=== PATIENT | female | born 1990 | race Caucasian/White ===

== ENCOUNTER 2019-07-14 19:42 | Emergency (ER) | payer OTHER ==
[~2019-07-14] VITALS: Ht 175.3 cm; Wt 108.9 kg
[2019-07-14 19:59] VITALS: BP 157/91
--- NOTE | 2019-07-14 20:09 | NUR ---
AMBULATES TO WITH SLOW, STEADY GAIT TO COLLECT URINE SAMPLE. ACCOMPANIED BY . WILL GO TO BED 09 WHEN FINISHED.
--- NOTE | 2019-07-14 20:32 | NUR ---
29 Y/O FEMALE PRESENTS TO ED, C/O VAGINAL BLEEDING. PT STATES GOING TO [facility] ON WEDNESDAY AND HAVING POSITIVE RESULTS. PT STATES HAVING SPOTTED BLEEDING BUT WORSENED TODAY. HCG IS NEGATIVE. PT DENIES ANY ABDOMINAL PAIN. NO N/V/D. PT VSS. ERMD AWARE. WILL CONTINUE TO MONITOR.
--- NOTE | 2019-07-14 20:41 | NUR ---
LAB AT BEDSIDE DRAWING BLOOD
--- NOTE | 2019-07-14 20:57 | NUR ---
ULTRASOUND AT BEDSIDE
[2019-07-14 21:02] LABS: BASOPHILS % (AUTO) 0.6 % (0.0-2.0); EOSINOPHILS # (AUTO) 0.2 K/uL (0-0.4); EOSINOPHILS % (AUTO) 2.8 % (0.0-4.0); HEMATOCRIT 36.2 % (36-48); HEMOGLOBIN 11.7 g/dL (12.0-16.0); LYMPHOCYTES # (AUTO) 2.1 K/uL (2.5-16.5); LYMPHOCYTES % (AUTO) 28.7 % (20.5-51.1); MEAN CORPUSCULAR HEMOGLOBIN 25 pg (27-31); MEAN CORPUSCULAR HGB CONC 32 g/dL (33-37); MEAN CORPUSCULAR VOLUME 78.6 fL (80-94); MONOCYTES # (AUTO) 0.6 K/uL (0.8-1.0); MONOCYTES % (AUTO) 8.5 % (1.7-9.3); NEUTROPHILS # (AUTO) 4.3 K/uL (1.8-7.7); NEUTROPHILS % (AUTO) 59.4 % (42.2-75.2); PLATELET COUNT (AUTO) 152 K/uL (140-450); RED BLOOD CELL COUNT(AUTO) 4.61 MIL/uL (4.20-5.40); RED CELL DISTRIBUTION WIDTH 13.8 % (11.6-13.7); WHITE BLOOD COUNT (AUTO) 7.2 K/uL (4.8-10.8)
[2019-07-14 21:19] LABS: BILIRUBIN,URINE 1+ (NEGATIVE); BLOOD, URINE 3+ (NEGATIVE); LEUKOCYTE ESTERASE ,URINE TRACE (NEGATIVE); NITRITE, URINE NEGATIVE (NEGATIVE); UGLUCOSE NEGATIVE (NEGATIVE)
[2019-07-14 21:31] LABS: APPEARANCE,URINE BLOODY (CLEAR); COLOR,URINE RED (YELLOW)
[2019-07-14 21:39] LABS: RBC,URINE TOO NUMEROUS TO COUN /HPF (0-5); WBC,URINE 0-5 /HPF (0-5)
[2019-07-14 23:05] VITALS: BP 157/91
--- NOTE | 2019-07-14 23:05 | NUR ---
PT DISCHARGED WITH PAPERWORK. EDUCATED PT REGARDING MEDICATIONS AND D/C INSTRUCTIONS. PT VERBALIZED UNDERSTANDING OF TEACHING. TOLD PT TO FOLLOW UP WITH PCP AND WHEN TO RETURN TO ED. PT AT STABLE CONDITION. ALL QUESTIONS ANSWERED.
== END 2019-07-14 23:05 | disposition home or self-care (01) ==
LOC: MED 19:42
DX: N93.9 Abnormal uterine and vaginal bleeding, unspecified (principal); I10 Essential (primary) hypertension
CPT/HCPCS: 36415; 76817; 81001; 81025; 84702; 85025; 86900; 86901; 99284; Q0092

== ENCOUNTER 2019-12-06 15:35 | Observation (INO) | payer OTHER ==
[~2019-12-06] VITALS: Ht 175.3 cm; Wt 119.7 kg
[2019-12-06 16:01] VITALS: BP 143/86
[2019-12-06] MEDS ORDERED: [UNRECOGNIZED DRUG - CODE] PO (16:49)
[2019-12-06] MEDS ORDERED: PREN-380 PO (16:49)
[2019-12-06 17:49] LABS: BASOPHILS % (AUTO) 0.3 % (0.0-2.0); EOSINOPHILS # (AUTO) 0.2 K/uL (0-0.4); EOSINOPHILS % (AUTO) 1.8 % (0.0-4.0); HEMATOCRIT 34.1 % (36-48); HEMOGLOBIN 11.4 g/dL (12.0-16.0); LYMPHOCYTES # (AUTO) 2.7 K/uL (2.5-16.5); LYMPHOCYTES % (AUTO) 29.7 % (20.5-51.1); MEAN CORPUSCULAR HEMOGLOBIN 27 pg (27-31); MEAN CORPUSCULAR HGB CONC 33 g/dL (33-37); MEAN CORPUSCULAR VOLUME 81.8 fL (80-94); MONOCYTES # (AUTO) 0.5 K/uL (0.8-1.0); MONOCYTES % (AUTO) 5.7 % (1.7-9.3); NEUTROPHILS # (AUTO) 5.7 K/uL (1.8-7.7); NEUTROPHILS % (AUTO) 62.5 % (42.2-75.2); PLATELET COUNT (AUTO) 122 K/uL (140-450); RED BLOOD CELL COUNT(AUTO) 4.17 MIL/uL (4.20-5.40); RED CELL DISTRIBUTION WIDTH 15.1 % (11.6-13.7); WHITE BLOOD COUNT (AUTO) 9.2 K/uL (4.8-10.8)
[2019-12-06 18:02] LABS: APPEARANCE,URINE CLEAR (CLEAR); BILIRUBIN,URINE NEGATIVE (NEGATIVE); BLOOD, URINE NEGATIVE (NEGATIVE); COLOR,URINE YELLOW (YELLOW); LEUKOCYTE ESTERASE ,URINE NEGATIVE (NEGATIVE); NITRITE, URINE NEGATIVE (NEGATIVE); UGLUCOSE NEGATIVE (NEGATIVE)
== END 2019-12-06 20:55 | disposition home or self-care (01) ==
LOC: MLD 15:35
PROVIDERS: ADMIT Obstetrics & Gynecology; ATTEND Obstetrics & Gynecology
DX: O46.92 Antepartum hemorrhage, unspecified, second trimester (principal); O13.2 Gestational [pregnancy-induced] hypertension without significant proteinuria, second trimester; O24.410 Gestational diabetes mellitus in pregnancy, diet controlled; Z79.82 Long term (current) use of aspirin; Z79.899 Other long term (current) drug therapy; Z3A.20 20 weeks gestation of pregnancy; W18.39XA Other fall on same level, initial encounter; Y93.89 Activity, other specified; Y93.29 Activity, other involving ice and snow
CPT/HCPCS: 36415; 76805; 76817; 81003; 85025; 85384; 86886; 86900; 86901; G0378; Q0092

== ENCOUNTER 2021-04-30 08:06 | Emergency (ER) | payer OTHER ==
[~2021-04-30] VITALS: Ht 175.3 cm; Wt 99.3 kg
[~2021-04-30 08:06] MED LIST: PREN-380 PO; [UNRECOGNIZED DRUG - CODE] PO
[2021-04-30 08:07] VITALS: BP 119/96
--- NOTE | 2021-04-30 08:16 | NUR ---
DR FOSTER AT BEDSIDE EVALUATING PT
--- NOTE | 2021-04-30 08:24 | NUR ---
31 y/o F BIB self for controlled vaginal bleeding without abd pain. Currently 13 weeks per pt. States she went to urinate this morning and upon wiping, noticed small amount of mikael red blood. Denies Abd pain at this time.Suma N/V/D. Resp even and unlabored on RA. AOX 4 and able to make all needs known. PmHx: HTN Current home meds: Labetalol Allergies: Denies
--- NOTE | 2021-04-30 08:25 | NUR ---
Lab at bedside collecting blood .
[2021-04-30 08:37] LABS: BASOPHILS % (AUTO) 0.5 % (0.0-2.0); EOSINOPHILS # (AUTO) 0.3 K/uL (0-0.4); EOSINOPHILS % (AUTO) 3.3 % (0.0-4.0); HEMATOCRIT 32.1 % (36-48); HEMOGLOBIN 10.4 g/dL (12.0-16.0); LYMPHOCYTES # (AUTO) 2.7 K/uL (2.5-16.5); LYMPHOCYTES % (AUTO) 29.1 % (20.5-51.1); MEAN CORPUSCULAR HEMOGLOBIN 24 pg (27-31); MEAN CORPUSCULAR HGB CONC 32 g/dL (33-37); MEAN CORPUSCULAR VOLUME 74.2 fL (80-94); MONOCYTES # (AUTO) 0.4 K/uL (0.8-1.0); MONOCYTES % (AUTO) 4.3 % (1.7-9.3); NEUTROPHILS # (AUTO) 5.8 K/uL (1.8-7.7); NEUTROPHILS % (AUTO) 62.8 % (42.2-75.2); PLATELET COUNT (AUTO) 134 K/uL (140-450); RED BLOOD CELL COUNT(AUTO) 4.33 MIL/uL (4.20-5.40); WHITE BLOOD COUNT (AUTO) 9.3 K/uL (4.8-10.8)
--- NOTE | 2021-04-30 08:39 | NUR ---
URINE COLLECTED AND PROCESSED
--- NOTE | 2021-04-30 08:48 | NUR ---
US AT BEDSIDE PERFORMING SCAN
[2021-04-30 08:50] LABS: ALBUMIN 3.1 g/dL (3.4-5.0); ANION GAP 14.3 (8-16); CARBON DIOXIDE 23.1 mmol/L (21-32); CREATININE 0.6 mg/dL (0.6-1.3); POTASSIUM 3.4 mmol/L (3.5-5.1); TOTAL BILIRUBIN 0.4 mg/dL (0.0-1.0)
[2021-04-30 09:07] LABS: BILIRUBIN,URINE 1+ (NEGATIVE); COLOR,URINE YELLOW (YELLOW); LEUKOCYTE ESTERASE ,URINE NEGATIVE (NEGATIVE); NITRITE, URINE NEGATIVE (NEGATIVE); PH,URINE 5.5 (5.0-9.0); UGLUCOSE NEGATIVE (NEGATIVE)
[2021-04-30 09:30] LABS: APPEARANCE,URINE HAZY (CLEAR); BLOOD, URINE 1+ (NEGATIVE)
[2021-04-30 09:31] LABS: RBC,URINE 0-5 /HPF (0-5); WBC,URINE 0-5 /HPF (0-5)
--- NOTE | 2021-04-30 09:55 | NUR ---
FOLLOWED UP WITH LAB AND TECH WILL SEE WHY THE CBC IS PENDING.
--- NOTE | 2021-04-30 10:24 | NUR ---
DR FOSTER AT BEDSIDE TO CONSULT WITH PT ABOUT RESULTS
--- NOTE | 2021-04-30 10:44 | NUR ---
HCG RESULTS RE[facility]ED TO [facility]
[2021-04-30 11:01] VITALS: BP 135/72
[2021-04-30] MEDS ORDERED: CEPH-588 PO (11:07)
--- NOTE | 2021-04-30 11:15 | NUR ---
Patient discharged with v/s stable. Written and verbal after care instructions ABOUT VAGINAL BLEEDING DURING given and explained. Patient alert, oriented and verbalized understanding of instructions. Ambulatory with steady gait. All questions addressed prior to discharge. ID band removed. Patient advised to follow up with PMD. Rx of KEFLEX given. Patient educated on indication of medication including possible reaction and side effects. Opportunity to ask questions provided and answered.
== END 2021-04-30 11:15 | disposition home or self-care (01) ==
LOC: MED 08:06
DX: O98.812 Other maternal infectious and parasitic diseases complicating pregnancy, second trimester (principal); O20.8 Other hemorrhage in early pregnancy; R82.71 Bacteriuria; I10 Essential (primary) hypertension; Z3A.13 13 weeks gestation of pregnancy; Z79.899 Other long term (current) drug therapy; Z3A.14 14 weeks gestation of pregnancy
CPT/HCPCS: 36415; 76801; 80053; 81001; 81025; 84702; 85025; 86900; 86901; 99284; Q0092

== ENCOUNTER 2021-10-03 22:26 | Inpatient (IN) | payer OTHER ==
[~2021-10-03] VITALS: Ht 175.3 cm; Wt 105.2 kg
[~2021-10-03 22:26] MED LIST changes: +CEPH-588 PO
[2021-10-03] MEDS ORDERED: METHYLERGONOVINE 0.2 MG/ML AMP IM PRN (23:45)
[2021-10-03] MEDS ORDERED: LACTATED RINGERS 500 ML IV SCH (23:45)
[2021-10-03] MEDS ORDERED: AMPICILLIN 2,000 MG in NACL 0.9% MINI-BAG PLUS 100 ML IV SCH (23:45)
[2021-10-03] MEDS ORDERED: MORPHINE SULFATE 5 MG/ML VIAL IVP PRN (23:45)
[2021-10-03] MEDS ORDERED: CARBOPROST 250 MCG/ML AMP IM PRN (23:45)
[2021-10-03] MEDS ORDERED: LACTATED RINGERS 1,000 ML IV SCH (23:45)
[2021-10-04] MEDS ORDERED: TRA200 PO (00:09)
[2021-10-04] MEDS ORDERED: ASPI-1749 PO (00:11)
[2021-10-04] MEDS ORDERED: MISOPROSTOL 200 MCG TAB VG SCH (00:45)
[2021-10-04] MEDS ORDERED: AMPICILLIN 2,000 MG VIAL ONE (00:47)
[2021-10-04 00:48] LABS: BASOPHILS % (AUTO) 0.4 % (0.0-2.0); EOSINOPHILS # (AUTO) 0.2 K/uL (0-0.4); HEMATOCRIT 27.7 % (36-48); HEMOGLOBIN 8.9 g/dL (12.0-16.0); LYMPHOCYTES # (AUTO) 2.8 K/uL (2.5-16.5); LYMPHOCYTES % (AUTO) 29.3 % (20.5-51.1); MEAN CORPUSCULAR HEMOGLOBIN 23 pg (27-31); MEAN CORPUSCULAR HGB CONC 32 g/dL (33-37); MEAN CORPUSCULAR VOLUME 71.9 fL (80-94); MONOCYTES # (AUTO) 0.7 K/uL (0.8-1.0); MONOCYTES % (AUTO) 7.3 % (1.7-9.3); NEUTROPHILS # (AUTO) 5.8 K/uL (1.8-7.7); PLATELET COUNT (AUTO) 124 K/uL (140-450); RED BLOOD CELL COUNT(AUTO) 3.85 MIL/uL (4.20-5.40); RED CELL DISTRIBUTION WIDTH 15.2 % (11.6-13.7); WHITE BLOOD COUNT (AUTO) 9.5 K/uL (4.8-10.8)
[2021-10-04 00:53] LABS: APPEARANCE,URINE CLEAR (CLEAR); BILIRUBIN,URINE NEGATIVE (NEGATIVE); BLOOD, URINE NEGATIVE (NEGATIVE); COLOR,URINE YELLOW (YELLOW); LEUKOCYTE ESTERASE ,URINE NEGATIVE (NEGATIVE); NITRITE, URINE NEGATIVE (NEGATIVE); UGLUCOSE NEGATIVE (NEGATIVE)
[2021-10-04 01:11] LABS: ALBUMIN 2.5 g/dL (3.4-5.0); ANION GAP 11.8 (8-16); CARBON DIOXIDE 22.6 mmol/L (21-32); CREATININE 0.5 mg/dL (0.6-1.3); POTASSIUM 3.4 mmol/L (3.5-5.1); TOTAL BILIRUBIN 0.6 mg/dL (0.0-1.0); URIC ACID 2.9 mg/dL (2.6-7.2)
[2021-10-04] MEDS ORDERED: OXYTOCIN 20 UNITS in LACTATED RINGERS 1,000 ML IV SCH (01:15)
[2021-10-04 01:20] LABS: RBC,URINE 0-5 /HPF (0-5); WBC,URINE 0-5 /HPF (0-5)
[2021-10-04] MEDS ORDERED: OXYTOCIN 20 UNITS/LR PREMIX 1,000 ML IV ONE (01:37)
[2021-10-04] MEDS ORDERED: AMPICILLIN 1,000 MG VIAL ONE ×2 (04:49→09:00)
[2021-10-04] MEDS: AMPICILLIN 1,000 MG in NACL 0.9% MINI-BAG PLUS 50 ML IV SCH ×2 (05:03→09:06)
--- NOTE | 2021-10-04 07:06 | NUR ---
PATIENT HAS BEEN SCREENED AND CATEGORIZED LOW NUTRITION RISK. PATIENT WILL BE SEEN WITHIN 7 DAYS OF ADMISSION. 10/11/21 KYLE HAWTHORNE MS, RDN
[2021-10-04] MEDS ORDERED: ROPIVACAINE 0.2%/NS PREMIX 200 ML EPI ONE (11:05)
[2021-10-04] MEDS ORDERED: fentaNYL citrate 0.05 MG/ML VIAL ONE (11:06)
[2021-10-04] MEDS ORDERED: OXYTOCIN 10 UNITS/ML VIAL IM PRN (16:00)
[2021-10-04] MEDS ORDERED: METHYLERGONOVINE 0.2 MG TAB PO PRN (16:00)
[2021-10-04] MEDS ORDERED: BENZOCAINE/MENTHOL 20%-0.5% 60 GM CAN TP PRN (16:00)
[2021-10-04] MEDS ORDERED: MEASLES, MUMPS, AND RUBELLA 1 VIAL SQVAC ONE (16:00)
[2021-10-04] MEDS ORDERED: IBUPROFEN 800 MG TAB PO PRN (16:00)
[2021-10-04] MEDS ORDERED: METHYLERGONOVINE 0.2 MG/ML AMP IM PRN (16:00)
[2021-10-05] MEDS ORDERED: MEASLES, MUMPS, AND RUBELLA 1 VIAL SQVAC ONE (04:05)
[2021-10-05 07:07] LABS: HEMATOCRIT 26.9 % (36-48); HEMOGLOBIN 8.7 g/dL (12.0-16.0)
== END 2021-10-05 17:10 | disposition home or self-care (01) | DRG 560 ==
LOC: MLD 22:26 → MFCC 10-04 15:45
PROVIDERS: ADMIT Obstetrics & Gynecology; ATTEND Obstetrics & Gynecology
PROC: 10E0XZZ Delivery of Products of Conception, External Approach (ICD-10-PCS; principal; 2021-10-04)
PROC: 3E033VJ Introduction of Other Hormone into Peripheral Vein, Percutaneous Approach (ICD-10-PCS; 2021-10-04)
PROC: 3E0R3BZ Introduction of Anesthetic Agent into Spinal Canal, Percutaneous Approach (ICD-10-PCS; 2021-10-04)
PROC: 00HU33Z Insertion of Infusion Device into Spinal Canal, Percutaneous Approach (ICD-10-PCS; 2021-10-04)
DX: O62.3 Precipitate labor (principal); Z37.0 Single live birth; O15.1 Eclampsia complicating labor; O13.4 Gestational [pregnancy-induced] hypertension without significant proteinuria, complicating childbirth; O14.94 Unspecified pre-eclampsia, complicating childbirth; Z20.822 Contact with and (suspected) exposure to COVID-19; Z3A.38 38 weeks gestation of pregnancy
CPT/HCPCS: 36415; 59409; 76815; 80053; 81001; 84550; 85018; 85025; 86592; 86886; 86900; 86901; 87340; 87653-90; 90707; 90715; J0290; J2590; J2795; J3010; J7120; Q0092

== ENCOUNTER 2022-12-27 12:02 | Inpatient (IN) | payer OTHER ==
[~2022-12-27] VITALS: Ht 177.8 cm; Wt 107.0 kg
[~2022-12-27 12:02] MED LIST changes: -CEPH-588 PO; -[UNRECOGNIZED DRUG - CODE] PO
[2022-12-27] MEDS ORDERED: MORPHINE SULFATE 5 MG/ML VIAL IVP PRN (12:35)
[2022-12-27] MEDS ORDERED: ONDANSETRON 4 MG/2 ML VIAL IVP PRN (12:35)
[2022-12-27] MEDS ORDERED: METHYLERGONOVINE 0.2 MG/ML AMP IM PRN (12:35)
[2022-12-27] MEDS ORDERED: OXYTOCIN 20 UNITS in LACTATED RINGERS 1,000 ML IV SCH (12:35)
[2022-12-27 13:00] VITALS: BP 131/72; PULSE 67; RESP 18; TEMP 97.7; O2SAT 98
[2022-12-27 13:11] LABS: BASOPHILS # (AUTO) 0.1 K/uL (0.00-0.22); BASOPHILS % (AUTO) 0.5 % (0.0-2.0); EOSINOPHILS # (AUTO) 0.1 K/uL (0-0.4); EOSINOPHILS % (AUTO) 1.3 % (0.0-4.0); HEMATOCRIT 25.6 % (36-48); HEMOGLOBIN 8.5 g/dL (12.0-16.0); LYMPHOCYTES # (AUTO) 2.4 K/uL (2.5-16.5); LYMPHOCYTES % (AUTO) 23.3 % (20.5-51.1); MEAN CORPUSCULAR HEMOGLOBIN 22 pg (27-31); MEAN CORPUSCULAR HGB CONC 33 g/dL (33-37); MEAN CORPUSCULAR VOLUME 66.1 fL (80-94); MONOCYTES # (AUTO) 0.5 K/uL (0.8-1.0); MONOCYTES % (AUTO) 4.7 % (1.7-9.3); NEUTROPHILS # (AUTO) 7.3 K/uL (1.8-7.7); NEUTROPHILS % (AUTO) 70.2 % (42.2-75.2); PLATELET COUNT (AUTO) 150 K/uL (140-450); RED BLOOD CELL COUNT(AUTO) 3.87 MIL/uL (4.20-5.40); RED CELL DISTRIBUTION WIDTH 15.7 % (11.6-13.7); WHITE BLOOD COUNT (AUTO) 10.4 K/uL (4.8-10.8)
[2022-12-27 13:12] LABS: BILIRUBIN,URINE NEGATIVE (NEGATIVE); BLOOD, URINE NEGATIVE (NEGATIVE); COLOR,URINE YELLOW (YELLOW); LEUKOCYTE ESTERASE ,URINE TRACE (NEGATIVE); NITRITE, URINE NEGATIVE (NEGATIVE); UGLUCOSE NEGATIVE (NEGATIVE)
[2022-12-27 13:17] LABS: APPEARANCE,URINE HAZY (CLEAR)
[2022-12-27] MEDS ORDERED: MISOPROSTOL 25 MCG TAB ONE (13:27)
[2022-12-27 13:33] LABS: CALCIUM OXALATE CRYSTALS,UR None Seen /HPF (None Seen); COARSE GRANULAR CASTS,URINE None Seen /LPF (None Seen); FINE GRANULAR CASTS,URINE None Seen /LPF (None Seen); HYALINE CASTS, URINE None Seen /LPF (None Seen); OTHER CASTS, URINE None Seen /LPF (None Seen); OTHER CRYSTALS,URINE None Seen /HPF (None Seen); RBC,URINE 0-5 /HPF (0-5); RED BLOOD CELL CASTS,URINE None Seen /LPF (None Seen); TRICHOMONAS,URINE None Seen /HPF (None Seen); TRIPLE PHOSPHATE CRYSTAL,UR None Seen /HPF (None Seen); URIC ACID CRYSTALS,URINE None Seen /HPF (None Seen); URINE AMORPHOUS URATE None Seen /HPF (None Seen); WAXY CASTS,URINE None Seen /LPF (None Seen); YEAST,URINE None Seen /HPF (None Seen)
[2022-12-27 13:37] LABS: ALBUMIN 2.5 g/dL (3.4-5.0); ANION GAP 13.3 (8-16); CARBON DIOXIDE 23.1 mmol/L (21-32); CREATININE 0.4 mg/dL (0.6-1.3); POTASSIUM 3.4 mmol/L (3.5-5.1); TOTAL BILIRUBIN 0.6 mg/dL (0.0-1.0)
[2022-12-27 13:39] LABS: PROTHROMBIN TIME 9.2 secs (10.8-13.4)
[2022-12-27] MEDS: LACTATED RINGERS 1,000 ML IV SCH ×3 (13:39→23:07)
[2022-12-27] MEDS ORDERED: AMPICILLIN 2,000 MG VIAL ONE (13:50)
[2022-12-27] MEDS ORDERED: AMPICILLIN 2,000 MG in NACL 0.9% 100 ML IV SCH (13:55)
[2022-12-27] MEDS ORDERED: TRA200 PO (16:24)
[2022-12-27] MEDS ORDERED: AMPICILLIN 1,000 MG VIAL ONE ×2 (17:43→21:32)
[2022-12-27] MEDS: AMPICILLIN 1,000 MG in NACL 0.9% 50 ML IV SCH (17:50)
[2022-12-27] MEDS ORDERED: MISOPROSTOL 25 MCG TAB VG SCH (18:00)
[2022-12-27] MEDS ORDERED: fentaNYL citrate 0.05 MG/ML VIAL ONE (23:10)
[2022-12-27] MEDS ORDERED: ROPIVACAINE 0.2%/NS PREMIX 200 ML EPI ONE (23:11)
[2022-12-28] MEDS ORDERED: AMPICILLIN 1,000 MG VIAL ONE ×2 (01:03→05:24)
[2022-12-28] MEDS ORDERED: OXYTOCIN 20 UNITS/LR PREMIX 1,000 ML IV ONE (01:04)
[2022-12-28] MEDS: AMPICILLIN 1,000 MG in NACL 0.9% 50 ML IV SCH ×2 (02:00→02:02)
[2022-12-28] MEDS: LACTATED RINGERS 1,000 ML IV SCH (07:59)
--- NOTE | 2022-12-28 09:20 | NUR ---
PATIENT HAS BEEN SCREENED AND CATEGORIZED LOW NUTRITION RISK. PATIENT WILL BE SEEN WITHIN 7 DAYS OF ADMISSION. 12/27/22-01/03/[address]
[2022-12-28] MEDS ORDERED: ROPIVACAINE 0.2%/NS PREMIX 200 ML EPI ONE (09:48)
[2022-12-28] MEDS ORDERED: CARBOPROST 250 MCG/ML AMP IM PRN (11:25)
[2022-12-28] MEDS ORDERED: MISOPROSTOL 200 MCG TAB ONE (12:28)
[2022-12-28] MEDS ORDERED: MISOPROSTOL 100 MCG TAB PO SCH (12:45)
[2022-12-28] MEDS ORDERED: SODIUM PHOSPHATE 118 ML ENEM RC PRN (14:55)
[2022-12-28] MEDS ORDERED: MEASLES, MUMPS, AND RUBELLA 1 VIAL SQVAC ONE (14:55)
[2022-12-28] MEDS ORDERED: TEMAZEPAM 15 MG CAP PO PRN (14:55)
[2022-12-28] MEDS ORDERED: oxyCODONE/APAP 5/325 MG 1 TAB TAB PO PRN (14:55)
[2022-12-28] MEDS ORDERED: IBUPROFEN 800 MG TAB PO PRN (14:55)
[2022-12-28] MEDS ORDERED: bisacodyL 5 MG TABEC PO SCH (21:00)
[2022-12-28] MEDS ORDERED: DOCUSATE SOD/SENNA 50/8.6 MG 1 TAB PO SCH (21:00)
[2022-12-29 08:08] LABS: HEMATOCRIT 23.8 % (36-48); HEMOGLOBIN 7.7 g/dL (12.0-16.0)
== END 2022-12-29 16:20 | disposition home or self-care (01) | DRG 560 ==
LOC: MLD 12:02 → OBSVTOIN 12:36 → MFCC 12-28 14:32
PROVIDERS: ADMIT Obstetrics & Gynecology; ATTEND Obstetrics & Gynecology
PROC: 10D07Z6 Extraction of Products of Conception, Vacuum, Via Natural or Artificial Opening (ICD-10-PCS; principal; 2022-12-28)
PROC: 3E0R3BZ Introduction of Anesthetic Agent into Spinal Canal, Percutaneous Approach (ICD-10-PCS; 2022-12-28)
PROC: 00HU33Z Insertion of Infusion Device into Spinal Canal, Percutaneous Approach (ICD-10-PCS; 2022-12-28)
DX: O24.429 Gestational diabetes mellitus in childbirth, unspecified control (principal); Z37.0 Single live birth; O14.94 Unspecified pre-eclampsia, complicating childbirth; Z20.822 Contact with and (suspected) exposure to COVID-19; Z3A.38 38 weeks gestation of pregnancy
CPT/HCPCS: 36415; 51702; 59070; 76815; 80053; 81001; 85018; 85025; 85610; 85730; 86592; 86886; 86900; 86901; 87086; 87653-90; J0290; J2590; J2795; J3010; J3490; J7120; Q0092

== ENCOUNTER 2023-10-09 17:25 | Emergency (ER) | payer OTHER ==
[~2023-10-09] VITALS: Ht 175.3 cm; Wt 106.6 kg
[2023-10-09 17:40] VITALS: BP 130/87; PULSE 71; RESP 18; TEMP 98.1; O2SAT 99
[2023-10-09] MEDS ORDERED: CLIN300C2 PO (18:11)
[2023-10-09 18:53] VITALS: BP 130/87; PULSE 71; RESP 18; TEMP 98.1; O2SAT 99
== END 2023-10-09 18:53 | disposition home or self-care (01) ==
LOC: MED 17:25
DX: S03.2XXA Dislocation of tooth, initial encounter (principal); I10 Essential (primary) hypertension; Z79.899 Other long term (current) drug therapy; X58.XXXA Exposure to other specified factors, initial encounter; Y93.89 Activity, other specified; Y92.89 Other specified places as the place of occurrence of the external cause; Y99.8 Other external cause status
CPT/HCPCS: 99283